=== PATIENT | male | born 1990 | race Caucasian/White ===

== ENCOUNTER 2017-04-09 18:54 | Emergency (ER) | payer OTHER ==
[2017-04-09 20:45] VITALS: BP 147/87
== END 2017-04-09 20:45 | disposition home or self-care (01) ==
LOC: ED 18:54
DX: R25.2 Cramp and spasm (principal)
CPT/HCPCS: J1885

== ENCOUNTER 2020-06-19 15:55 | Emergency (ER) | payer OTHER ==
[~2020-06-19] VITALS: Ht 172.7 cm; Wt 110.2 kg
[2020-06-19 16:01] VITALS: BP 132/76; Ht 172.7 cm; Wt 110.2 kg
== END 2020-06-19 16:17 | disposition home or self-care (01) ==
LOC: ED 15:55
DX: L60.0 Ingrowing nail (principal)